=== PATIENT | male | born 1965 | race Caucasian/White ===

== ENCOUNTER 2019-06-07 19:01 | Inpatient (IN) | payer OTHER, MEDICAID ==
[~2019-06-07] VITALS: Ht 180.3 cm; Wt 126.2 kg
--- NOTE | 2019-06-07 19:01 | NUR ---
Pt BIB BLS from [facility] in stable condition. EMS with pt in ER hallway until bed becomes available.
[2019-06-07 19:20] VITALS: BP_SYST 129
--- NOTE | 2019-06-07 19:20 | NUR ---
Pt placed to ER bed 03, to gown, to sheet metal worker apprentice. Pt report given to ASHIA Grant.
--- NOTE | 2019-06-07 19:40 | NUR ---
Pt BIB EMS from [facility] with c/o SOB, left sided swelling of hand and foot, and congestion. Pt states SOB has gradually increased the last few days when he "walks from bedroom to dining guzman." Upon assessment pt has +2 edema to left leg and left wrist. Pt has +1 edema to right leg. Upon assessment, pt has clear bilateral lungs. Pt oxygen saturation at 98% with no use of accessory muscles. Will continue monitor.
--- NOTE | 2019-06-07 20:30 | NUR ---
Dr. Hall at bedside.
--- NOTE | 2019-06-07 20:51 | NUR ---
Radiology at bedside.
[2019-06-07 21:23] LABS: BASOPHILS # (AUTO) 0.1 K/uL (0.0-0.2); BASOPHILS % (AUTO) 1.3 % (0.0-2.0); EOSINOPHILS # (AUTO) 0.2 K/uL (0.0-0.4); HEMOGLOBIN 8.2 g/dL (14.0-18.0); LYMPHOCYTES # (AUTO) 2.4 K/uL (1.0-5.5); LYMPHOCYTES % (AUTO) 26.2 % (20.5-51.5); MEAN CORPUSCULAR HEMOGLOBIN 19 pg (27-31); MEAN CORPUSCULAR HGB CONC 29 % (32-36); MEAN CORPUSCULAR VOLUME 65 fL (79.0-98.0); MONOCYTES # (AUTO) 0.8 K/uL (0.0-1.0); MONOCYTES % (AUTO) 9.1 % (1.7-9.3); NEUTROPHILS # (AUTO) 5.6 K/uL (1.8-7.7); NEUTROPHILS % (AUTO) 61.4 % (40.0-70.0); PLATELET COUNT (AUTO) 333 K/uL (130-430); RED BLOOD CELL COUNT(AUTO) 4.33 MIL/uL (4.2-6.2); RED CELL DISTRIBUTION WIDTH 19.4 % (9.0-15.0); WHITE BLOOD COUNT (AUTO) 9.1 K/uL (4.8-10.8)
[2019-06-07 21:40] LABS: PROTHROMBIN TIME 9.9 SECS (9.5-12.5)
[2019-06-07 21:42] LABS: CALCIUM 7.8 mg/dL (8.4-11.0); CREATININE 0.87 mg/dL (0.55-1.30); POTASSIUM 3.9 mmol/L (3.5-5.1)
[2019-06-07 21:49] LABS: ALBUMIN 3.2 g/dL (3.4-4.8); TOTAL BILIRUBIN 0.2 mg/dL (0.0-1.0)
--- NOTE | 2019-06-07 21:55 | NUR ---
Pt requests water. Per , pt allowed water. Pt given ice water. Will continue to monitor.
--- NOTE | 2019-06-07 23:13 | NUR ---
Patient will be admitted to care of [facility]. Admitted to telemetry unit. Awaiting room placement. Belongings list completed. Complete and up to date summary report printed. SBAR report to be given at bedside with opportunity for questions.
[2019-06-07] MEDS ORDERED: POTA20TA83 PO (23:39)
[2019-06-07] MEDS ORDERED: INSU100V SQ (23:39)
[2019-06-07] MEDS ORDERED: HYDR-4039 PO (23:39)
[2019-06-07] MEDS ORDERED: CAT.1 PO (23:39)
[2019-06-07] MEDS ORDERED: TOP25 PO (23:39)
[2019-06-07] MEDS ORDERED: COLL100 PO (23:39)
[2019-06-07] MEDS ORDERED: ACET-2165 PO (23:39)
[2019-06-07] MEDS ORDERED: GABA-529 PO (23:39)
[2019-06-07] MEDS ORDERED: METO25TA6 PO (23:39)
[2019-06-07] MEDS ORDERED: INSU100V9 SQ (23:39)
[2019-06-07] MEDS ORDERED: LORA-259 PO (23:39)
[2019-06-07] MEDS ORDERED: FLEETMO RC (23:39)
[2019-06-07] MEDS ORDERED: LISI2.5T48 PO (23:39)
[2019-06-07] MEDS ORDERED: BISA-79 PR (23:39)
[2019-06-07] MEDS ORDERED: GLUC1KIT IJ (23:39)
[2019-06-07] MEDS ORDERED: MOM PO (23:39)
[2019-06-07] MEDS ORDERED: ONDA4TAB5 PO (23:39)
[2019-06-07] MEDS ORDERED: PANT40TA4 PO (23:39)
[2019-06-07] MEDS ORDERED: NITSL SL (23:39)
--- NOTE | 2019-06-07 23:39 | NUR ---
Medication reconciliation completed with information provided by [facility]. Any prior medication reconciliation on file was reviewed and corrected.
--- NOTE | 2019-06-08 00:08 | NUR ---
[facility] powerhouse attendant called and would like to be updated on pt. fabric coating supervisor's name is Morteza and phone number is .
--- NOTE | 2019-06-08 00:56 | NUR ---
Transfer to Telemetry room 123B via ACLS protocol. Licensed nurse present. IV present no signs or symptoms of infiltration.
--- NOTE | 2019-06-08 02:00 | NUR ---
Due to Code blue, charge nurse and Peek off unit. refrigerating technician on break. 3 nurses must be in ER when MD off unit. Will continue to monitor pt and transfer when available staff.
--- NOTE | 2019-06-08 02:30 | NUR ---
Pt transfered to Telemetry via [facility] in stable condition.
--- NOTE | 2019-06-08 02:45 | NUR ---
REPORT RECEIVED BY ASHIA CASTAÑEDA. REPORT RECEIVED, BY ASHIA CASTAÑEDA. BY BEDSIDE.
[2019-06-08 02:58] VITALS: BP_SYST 155
--- NOTE | 2019-06-08 03:00 | NUR ---
ADMISSION: The patient, EDUARD SPAIN, 54 y/o, M admitted by DEVONTE BAKER MD, was given written information regarding hospital policies, unit procedures and contact persons. Valuables were checked and signed.
--- NOTE | 2019-06-08 03:10 | NUR ---
INITIAL NOTE PATIENT IS STABLE AND LAYING IN BED. NO S/S OF RESPIRATORY DISTRESS NOTED. PLAN OF CARE IS DISCUSSED WITH PATIENT AT THIS TIME. FALL, SAFETY, ASPIRATION, AND RESPIRATORY PRECAUTIONS WILL BE IN PLACE THROUGHOUT THE SHIFT. BED IS LOCKED, ALARMED, AND AT THE LOWEST POSITION. WILL CONTINUE TO MONITOR.
--- NOTE | 2019-06-08 03:35 | NUR ---
Consultation Paged Reason for Consultation: CHF Was consult called: Y Person who was notified: Sadia Consulting Physician: Sanchez Marcos Recreation Therapy Teacher Ordering Physician: Dr. Hewitt
[2019-06-08] MEDS: INSULIN REGULAR, HUMAN 100 UNITS/ML, 10 ML VIAL (humuLIN R) SUBCUT PRN ×4 (05:20→23:12)
--- NOTE | 2019-06-08 05:20 | NUR ---
PATIENT REFUSED INSULIN PATIENT REFUSED INSULIN DESPITE EDUCATIONAL EFFORTS. GLUCOSE IS 187. WILL CONTINUE TO EDUCATE.
[2019-06-08] MEDS ORDERED: NORMAL SALINE 5 ML DISP.SYRIN IVF SCH (06:00)
--- NOTE | 2019-06-08 06:34 | NUR ---
PAGE DR. BAKER FOR ORDERS.
[2019-06-08 06:40] LABS: BASOPHILS % (AUTO) 0.5 % (0.0-2.0); EOSINOPHILS # (AUTO) 0.2 K/uL (0.0-0.4); EOSINOPHILS % (AUTO) 2.1 % (0.0-4.0); HEMATOCRIT 27.4 % (36-54); HEMOGLOBIN 8.1 g/dL (14.0-18.0); LYMPHOCYTES # (AUTO) 2.3 K/uL (1.0-5.5); LYMPHOCYTES % (AUTO) 24.7 % (20.5-51.5); MEAN CORPUSCULAR HEMOGLOBIN 19 pg (27-31); MEAN CORPUSCULAR HGB CONC 29 % (32-36); MEAN CORPUSCULAR VOLUME 65 fL (79.0-98.0); MONOCYTES # (AUTO) 0.9 K/uL (0.0-1.0); MONOCYTES % (AUTO) 9.2 % (1.7-9.3); NEUTROPHILS # (AUTO) 5.9 K/uL (1.8-7.7); NEUTROPHILS % (AUTO) 63.5 % (40.0-70.0); PLATELET COUNT (AUTO) 297 K/uL (130-430); RED BLOOD CELL COUNT(AUTO) 4.22 MIL/uL (4.2-6.2); RED CELL DISTRIBUTION WIDTH 18.6 % (9.0-15.0); WHITE BLOOD COUNT (AUTO) 9.3 K/uL (4.8-10.8)
[2019-06-08 06:44] LABS: CALCIUM 7.6 mg/dL (8.4-11.0); CREATININE 0.79 mg/dL (0.55-1.30); POTASSIUM 3.6 mmol/L (3.5-5.1)
--- NOTE | 2019-06-08 06:49 | NUR ---
COMMUNICATED WITH DR. BAKER COMMUNICATED WITH DR. BAKER. ORDERS RECEIVED. WILL CONTINUE WITH ORDERS.
--- NOTE | 2019-06-08 06:59 | NUR ---
CLOSING NOTES PATIENT IS RESTING IN BED AND STABLE. NO S/S OF RESPIRATORY DISTRESS NOTED. CALL LIGHT IN REACH. BED IS LOCKED, ALARMED, AND AT THE LOWEST POSITION. FALL, SAFETY, ASPIRATION, CONTACT, AND RESPIRATORY PRECAUTIONS HAS BEEN PLACE THROUGHOUT THE SHIFT. WILL CONTINUE TO MONITOR UNTIL REPORT IS GIVEN TO AM NURSE.
--- NOTE | 2019-06-08 08:40 | NUR ---
AM rounds: Patient is awake, oriented x4. Ambulates to the bathroom with minimal assist. No shortness of breath, no chest pain. Call light within reach, safety precautions in place.
[2019-06-08] MEDS: OXYCODONE/ACETAMINOPHEN *10*mg/325 mg TABLET PO PRN ×3 (08:56→21:26)
[2019-06-08 08:58] VITALS: BP_SYST 161
--- NOTE | 2019-06-08 10:47 | NUR ---
Nutrition Update Jose J Scale 18 noted. Pt admitted for CHF. Diet: CCHO, 2 gm Na BMI: 39.5 kg/m2 RD to follow per nutrition care standards.
[2019-06-08] MEDS ORDERED: LOSARTAN/HYDROCHLOROTHIAZIDE TAB (HYZAAR 50-12.5 MG) PO ONE (11:00)
--- NOTE | 2019-06-08 11:30 | NUR ---
Rounds: Patient is in bed. No shortness of breath,
--- NOTE | 2019-06-08 11:38 | NUR ---
Cardio Rounds; Seen by Dr. Wilmar Tracy, orders noted. Made aware of high Bp this morning.
[2019-06-08 12:05] VITALS: BP_SYST 171
[2019-06-08 12:07] VITALS: BP_SYST 151
[2019-06-08] MEDS ORDERED: D5W 1,000 ML IV PRN (12:23)
[2019-06-08] MEDS ORDERED: DEXTROSE 50% JECT 50 ML DISP.SYRIN IVP PRN (12:30)
[2019-06-08] MEDS ORDERED: GLUCOSE 15 GM GEL (in 37.5 GM TUBE) PO PRN (12:30)
--- NOTE | 2019-06-08 12:42 | NUR ---
CONSULTATION PAGED/CALLED Reason for Consultation: COPD/SOB Person Who was Notified: DR. REDDY Consulting Physician: DR. REDDY Rn Clinical Appeals Specialty: PULOMONOLOGIST Ordering Physician: DR. BAKER
[2019-06-08] MEDS ORDERED: DOCUSATE SODIUM 100 MG/10 ML UDC PO PRN (12:45)
[2019-06-08] MEDS ORDERED: ACETAMINOPHEN 325 MG TABLET PO PRN (12:45)
[2019-06-08] MEDS ORDERED: MILK OF MAGNESIA 30 ML UDC PO PRN (12:45)
[2019-06-08] MEDS ORDERED: BISACODYL 5 MG TABLET.DR (DULCOLAX) PO PRN (12:45)
[2019-06-08] MEDS ORDERED: MINERAL OIL 133 ML ENEMA RC PRN (12:45)
[2019-06-08] MEDS ORDERED: NITROGLYCERIN 0.4 MG TAB.SUBL SL PRN (12:45)
--- NOTE | 2019-06-08 13:00 | NUR ---
MD Rounds: Seen by Dr. Hewitt. Home meds were reconcilled. Patient is aware of new orders.
[2019-06-08] MEDS ORDERED: HYDROCHLOROTHIAZIDE 12.5 MG CAPSULE (HCTZ) PO ONE (13:30)
[2019-06-08] MEDS ORDERED: LOSARTAN POTASSIUM 50 MG TABLET (COZAAR) PO ONE (13:30)
--- NOTE | 2019-06-08 13:38 | NUR ---
CONSULTATION PAGED/CALLED Reason for Consultation: SOB Person Who was Notified: SPOKE WITH CEDRIC FROM Nghia MCMANUS Consulting Physician: Nghia MCMANUS Diesel Pile Hammer Operator Specialty: ID Ordering Physician: FACE SHEET WAS FAXED [phone]
[2019-06-08] MEDS ORDERED: FUROSEMIDE 20 MG TABLET PO ONE (14:00)
[2019-06-08] MEDS: cloNIDine HCL 0.1 MG TABLET PO SCH ×2 (14:48→21:16)
[2019-06-08] MEDS: hydrALAZINE HCL 25 MG TABLET PO SCH ×2 (14:48→21:17)
[2019-06-08] MEDS ORDERED: ENOXAPARIN SODIUM 40 MG/0.4 ML SYRINGE SUBCUT ONE (15:30)
[2019-06-08 16:04] VITALS: BP_SYST 162
--- NOTE | 2019-06-08 18:22 | NUR ---
End of shift: Needs attended. No change in assessment.
--- NOTE | 2019-06-08 19:40 | NUR ---
INITIAL NOTES PATIENT IS LAYING IN BED AND STABLE. NO S/S OF RESPIRATORY DISTRESS NOTED. PATIENT WAS ABLE TO SUCCESSFULLY DEMONSTRATE USAGE OF CALL LIGHT AT THIS TIME. PLAN OF CARE WAS DISCUSSED WITH PATIENT. BED IS LOCKED, ALARMED, AND AT THE LOWEST POSITION. FALL, SAFETY, ASPIRATION, CONTACT, AND RESPIRATORY PRECAUTIONS WILL BE IN PLACE THROUGHOUT THE SHIFT. WILL CONTINUE TO MONITOR.
[2019-06-08 19:49] VITALS: BP_SYST 144
[2019-06-08] MEDS: TEMAZEPAM 15 MG CAPSULE PO SCH (21:12)
[2019-06-08] MEDS: GABAPENTIN 300 MG CAPSULE PO SCH (21:13)
[2019-06-08] MEDS: TOPIRAMATE 25 MG TABLET(TOPAMAX) PO SCH (21:13)
--- NOTE | 2019-06-08 21:40 | NUR ---
ROUNDING PATIENT IS LAYING IN BED AND WATCHING TV. PATIENT IS STABLE. NO S/S OF RESPIRATORY DISTRESS NOTED. CALL LIGHT IN REACH. BED IS LOCKED, ALARMED, AND AT THE LOWEST POSITION. WILL CONTINUE TO MONITOR.
--- NOTE | 2019-06-08 22:52 | NUR ---
PATIENT REQUESTED TO SIT AT THE EDGE OF THE BED DESPITE EDUCATIONAL EFFORTS, PATIENT REQUESTED TO SIT AT THE EDGE OF THE BED. WILL MONITOR FREQUENTLY. BED IS LOCKED, ALARMED, AND AT THE LOWEST POSITION. PATIENT IS OTHERWISE STABLE. NO S/S OF RESPIRATORY DISTRESS NOTED. CALL LIGHT IN REACH. WILL CONTINUE TO MONITOR.
[2019-06-09] VITALS (7 sets, daily range): BP systolic 109–142
--- NOTE | 2019-06-09 00:21 | NUR ---
ROUNDING PATIENT IS LAYING IN BED AND STABLE. PATIENT IS WATCHING TV. NO S/S OF RESPIRATORY DISTRESS NOTED. CALL LIGHT IN REACH. BED IS LOCKED, ALARMED, AND AT THE LOWEST POSITION. WILL CONTINUE TO MONITOR.
--- NOTE | 2019-06-09 01:29 | NUR ---
PATIENT WALKED TO THE RESTROOM PATIENT WALKED TO THE RESTROOM AT THIS TIME. PATIENT TOLERATED WELL. PATIENT HAD A BOWEL MOVEMENT. PATIENT IS BACK IN BED. NO S/S OF RESPIRATORY DISTRESS. CALL LIGHT IN REACH. BED IS LOCKED, ALARMED, AND AT THE LOWEST POSITION.
--- NOTE | 2019-06-09 03:29 | NUR ---
ROUNDING PATIENT IS SLEEPING IN BED AND STABLE. NO S/S OF RESPIRATORY DISTRESS NOTED. CALL LIGHT IN REACH. BED IS LOCKED, ALARMED, AND AT THE LOWEST POSITION. WILL CONTINUE TO MONITOR.
[2019-06-09] MEDS: cloNIDine HCL 0.1 MG TABLET PO SCH ×3 (05:31→21:05)
[2019-06-09] MEDS: INSULIN REGULAR, HUMAN 100 UNITS/ML, 10 ML VIAL (humuLIN R) SUBCUT PRN ×4 (05:37→23:55)
[2019-06-09 06:14] LABS: CALCIUM 8.1 mg/dL (8.4-11.0); CREATININE 0.7 mg/dL (0.55-1.30); POTASSIUM 3.6 mmol/L (3.5-5.1)
--- NOTE | 2019-06-09 06:37 | NUR ---
CLOSING NOTES PATIENT IS LAYING IN BED AND STABLE. NO S/S OF RESPIRATORY DISTRESS NOTED. CALL LIGHT IN REACH. BED IS LOCKED, ALARMED, AND AT THE LOWEST POSITION. FALL, SAFETY, ASPIRATION, CONTACT, AND RESPIRATORY PRECAUTIONS HAS BEEN PLACE THROUGHOUT THE SHIFT. WILL CONTINUE TO MONITOR UNTIL REPORT IS GIVEN TO AM NURSE BY BEDSIDE.
--- NOTE | 2019-06-09 08:00 | NUR ---
Note Pt sitting up in bed eating his breakfast. No SOB/resp distress or chest pain/discomfort was noted at this time. Tele unit attached and intact at this time. IV in right forearm intact and patent. No needs noted. Call light within reach.
[2019-06-09] MEDS: GABAPENTIN 300 MG CAPSULE PO SCH ×2 (08:29→21:04)
[2019-06-09] MEDS: POTASSIUM CHLORIDE 20 MEQ TAB.PRT.SR PO SCH (08:29)
[2019-06-09] MEDS: LORazepam 1 MG TABLET PO SCH (08:29)
[2019-06-09] MEDS: ONDANSETRON 4 MG ODT TAB PO SCH (08:29)
[2019-06-09] MEDS: METOPROLOL TARTRATE 25 MG TABLET PO SCH (08:30)
[2019-06-09] MEDS: hydrALAZINE HCL 25 MG TABLET PO SCH ×3 (08:31→21:04)
[2019-06-09] MEDS: PANTOPRAZOLE SODIUM 40 MG TAB PO SCH (08:31)
[2019-06-09] MEDS: LISINOPRIL 5 MG TABLET PO SCH (08:31)
[2019-06-09] MEDS: ENOXAPARIN SODIUM 40 MG/0.4 ML SYRINGE SUBCUT SCH (08:36)
--- NOTE | 2019-06-09 11:50 | NUR ---
Note Pt asleep in bed. Denies any needs at this time. Denies any pain/discomfort at this time. Call light within reach.
[2019-06-09] MEDS ORDERED: ALBUTEROL SULFATE 0.083% 2.5 MG/3 ML VIAL.NEB INH PRN (12:15)
[2019-06-09] MEDS ORDERED: IPRATROPIUM BROM 0.5 MG/2.5 ML VIAL.NEB (ATROVENT) INH PRN (12:15)
--- NOTE | 2019-06-09 12:30 | NUR ---
Discharge Plan Assessment Complete MEDICAL AUTHORIZATION SPECIALIST met with patient at bedside. Patient is alert and oriented. He has a DNR order. He has lived at [facility] for "a long time" and plans to return. He does not want his sister called and makes his own decisions. Phoned [facility], , and left a message for a return call. No barriers apparent for return to SNF. Production Editor/Case Management/Fagoting Machine Operator will remain available.
[2019-06-09] MEDS ORDERED: FUROSEMIDE 40 MG/4 ML VIAL IVP ONE (13:00)
[2019-06-09] MEDS: ALBUTEROL SULFATE 0.083% 2.5 MG/3 ML VIAL.NEB INH SCH ×2 (13:49→19:33)
[2019-06-09] MEDS: IPRATROPIUM BROM 0.5 MG/2.5 ML VIAL.NEB (ATROVENT) INH SCH ×2 (13:49→19:33)
--- NOTE | 2019-06-09 14:35 | NUR ---
Note Pt had his breathing treatments and now gone back to sleep. No SOB/resp distress or chest pain/discomfort noted at this time. No needs noted. Call light within reach.
--- NOTE | 2019-06-09 18:15 | NUR ---
Note Pt ambulated OOB to restroom with FWW to restroom for bowel movement. Pt was checked on q1' and PRN all shift for needs and care. No SOB/resp distress or chest pain/discomfort noted at this time. Tele unit attached and intact. IV in right hand intact and patent. No needs noted at this time. Call light within reach. Pt sitting on side of bed eating his dinner.
--- NOTE | 2019-06-09 19:15 | NUR ---
change of shift.pt.presents general status stable.pt.ambulates utilizing the assist device;walker.respiratory status stable; unlabored @room air. pt.presents iv acces intact;patent.call light/telephone w/in reach of the pt.
[2019-06-09] MEDS: OXYCODONE/ACETAMINOPHEN *10*mg/325 mg TABLET PO PRN (19:59)
--- NOTE | 2019-06-09 20:00 | NUR ---
pt.assessed.v/s assessed;values w/in normal limits.i have apprised the pt.that i may provide snacks/beverages w/in the shift. pt.has requested snacks.i have provided various snack items.general status stable.respiratory status stable@room air; 02-sat%=98%@room air.iv access intact;patent.pt.capable to reposition self/ambulate utilizing the walker.call light/ telephone w/in reach of the pt.i have inspected the urinal;clean w/in reach of the pt. Addendum: 06/10/19 at 0130 by Rao Hansen RN pt.had requested medication;pain.i have administered percocet;10/325mg po.to re-assess the medication efficacy per pain mgx protocol.
--- NOTE | 2019-06-09 21:00 | NUR ---
2100pmedications administered.pt.capable to ingest medication whole w/out difficulty.no requests posited@this hour.
[2019-06-09] MEDS: TOPIRAMATE 25 MG TABLET(TOPAMAX) PO SCH (21:04)
[2019-06-09] MEDS: TEMAZEPAM 15 MG CAPSULE PO SCH (21:04)
--- NOTE | 2019-06-09 22:00 | NUR ---
pt.assessed.pt.presents quiescent affect;calm,resting.no c/o pain,nausea.i have attended to the urinal;measured/placed w/in reach of the pt. no c/o pain,nausea.no requests posited@this hour.general status stable.respiratory status stable;unlabored.pt.capable to reposition self. call light/telephone placed w/in reach of the pt.
[2019-06-10] VITALS (7 sets, daily range): BP systolic 108–132
--- NOTE | 2019-06-10 | NUR ---
pt.assessed.v/s assessed;values w/in normal limits.no c/o pain,nausea.i have assessed the blood glucose;value;326mg/dl. i have administered insulin;regular:8-units.pt had request snacks/i cheo provided the snacks items.i have inspected the urinal;clean w/in reach of the pt. general status stable.respiratory status stable.pt.capable to reposition self.call light/telephone w/in reach of the pt.
[2019-06-10] MEDS: ALBUTEROL SULFATE 0.083% 2.5 MG/3 ML VIAL.NEB INH SCH ×4 (01:00→19:00)
[2019-06-10] MEDS: IPRATROPIUM BROM 0.5 MG/2.5 ML VIAL.NEB (ATROVENT) INH SCH ×4 (01:00→19:00)
--- NOTE | 2019-06-10 02:00 | NUR ---
pt.assessed.pt.presents quiescent affect;calm,resting,viewing tv programming.i have inspected the urinal;clean.pt. alternates to the restroom utilizing the urinal.w/in reach of the pt.pt.capable to reposition self.oob/brp utilizing the walker.general statu stable.respiratory status stable.;unlabored.call light/telephone w/in reach of the pt.no requests posited @this hour.
--- NOTE | 2019-06-10 02:30 | NUR ---
pt.had requested medication;pain.i have administered percocet;10/325mg po 1 tab.no additional requests posited @this hour.
[2019-06-10] MEDS: OXYCODONE/ACETAMINOPHEN *10*mg/325 mg TABLET PO PRN ×2 (02:38→21:08)
--- NOTE | 2019-06-10 04:00 | NUR ---
pt.assessed.pt.presents quiescent affect;calm,somnolent.i have inspected the urinal;clean.w/in reach of the pt. general status stable.respiratory status stable;unlabored.pt.,capable to reposition self.call light/telephone w/in reach of the pt.
[2019-06-10] MEDS: cloNIDine HCL 0.1 MG TABLET PO SCH ×3 (05:18→21:34)
[2019-06-10] MEDS: INSULIN REGULAR, HUMAN 100 UNITS/ML, 10 ML VIAL (humuLIN R) SUBCUT PRN ×3 (05:28→17:11)
--- NOTE | 2019-06-10 06:11 | NUR ---
pt assessed.pt.presents quiescent affect;calm,resting.i have assessed th blood glucose:value;272mg/dl.i have administered: insulin:regular:6-units.no c/o pain,nausea.urinal w/in reach of the pt.call light//telephone w/in reach of the pt.
--- NOTE | 2019-06-10 08:00 | NUR ---
Note Pt sitting on side of bed eating his breakfast. Tele unit attached and intact at this time. IV in right AC intact and patent. No SOB/resp distress or chest pain/discomfort noted at this time. Call light within reach.
[2019-06-10] MEDS: FUROSEMIDE 40 MG/4 ML VIAL IVP SCH (08:43)
[2019-06-10] MEDS: PANTOPRAZOLE SODIUM 40 MG TAB PO SCH (08:44)
[2019-06-10] MEDS: GABAPENTIN 300 MG CAPSULE PO SCH ×2 (08:44→21:34)
[2019-06-10] MEDS: METOPROLOL TARTRATE 25 MG TABLET PO SCH (08:45)
[2019-06-10] MEDS: hydrALAZINE HCL 25 MG TABLET PO SCH ×3 (08:46→21:33)
[2019-06-10] MEDS: ONDANSETRON 4 MG ODT TAB PO SCH (08:46)
[2019-06-10] MEDS: POTASSIUM CHLORIDE 20 MEQ TAB.PRT.SR PO SCH (08:47)
[2019-06-10] MEDS: LISINOPRIL 5 MG TABLET PO SCH (08:48)
[2019-06-10] MEDS: LORazepam 1 MG TABLET PO SCH (08:49)
[2019-06-10] MEDS: ENOXAPARIN SODIUM 40 MG/0.4 ML SYRINGE SUBCUT SCH (08:53)
--- NOTE | 2019-06-10 11:00 | NUR ---
Note Pt used FWW and ambulated to restroom with steady gait. No needs noted at this time. Call light within reach. Dr Tracy (ID) on the floor and assessment was done. Call light within reach.
--- NOTE | 2019-06-10 13:00 | NUR ---
Note Pt sitting on side of bed eating his lunch. No SOB/resp distress or pain/discomfort was noted at this time. Call light within reach.
[2019-06-10 13:46] LABS: CALCIUM 8.2 mg/dL (8.4-11.0); CREATININE 0.96 mg/dL (0.55-1.30); POTASSIUM 4.2 mmol/L (3.5-5.1)
--- NOTE | 2019-06-10 16:05 | NUR ---
Note Pt sitting up in bed watching television - denies any needs at this time. Denies any SOB/resp distress or chest pain/discomfort at this time. Call light within reach.
--- NOTE | 2019-06-10 18:15 | NUR ---
Note Pt sitting on side of bed eating his dinner. No SOB/resp distress or chest pain/discomfort was noted all shift. Pt was checked on q1' and PRN all shift for needs and care. IV in right AC intact and patent at this time. Pt uses FWW to ambulate to restroom with standby assist - as pt has left sided weakness on left leg and arm. No needs noted at this time. Call light within reach. Tele unit attached and intact at this time.
--- NOTE | 2019-06-10 20:00 | NUR ---
REPORT RECIEVED @ START OF SHIFT, PATIENT A/O/X/3 WITH FORGETFULNESS, RESPIRATIONS EVEN AND UNLABORED, ROOM AIR,ABLE TO AMBULATE FROM BED TO RESTROOM USING WALKER,VOIDING CLEAR YELLOW URINE, S/L PATENT/INTACT TO RAC # 20G, NOTED LEFT SIDED WEAKNESS, SPEECH IS CLEAR AND SLOW, C/O ABDOMINAL PAIN, MEDICATED WITH PERCOCET PO TAB.1, WILL CONTINUE TO MONITOR FOR ANY S/S OF DISTRESS. SR'S UP X'S 2, CALL LIGHT WITHIN REACH, BED IN LOW POSITION.
[2019-06-10] MEDS: TEMAZEPAM 15 MG CAPSULE PO SCH (21:32)
[2019-06-10] MEDS: TOPIRAMATE 25 MG TABLET(TOPAMAX) PO SCH (21:37)
--- NOTE | 2019-06-11 | NUR ---
BLOOD GLUCOSE RESULTS = 280, GIVEN REGULAR INSULIN 6 UNITS SUBQ PER SLIDING SCALE COVERAGE, DENIES PAIN, CONTINUES TO REST QUIETLY IN BED WITH EYES CLOSED, EASILY AROUSED, NO NOTED CHANGES IN PRESENT CONDITION.
[2019-06-11] MEDS: IPRATROPIUM BROM 0.5 MG/2.5 ML VIAL.NEB (ATROVENT) INH SCH ×3 (01:00→13:12)
[2019-06-11] MEDS: ALBUTEROL SULFATE 0.083% 2.5 MG/3 ML VIAL.NEB INH SCH ×3 (01:00→13:12)
[2019-06-11] MEDS: INSULIN REGULAR, HUMAN 100 UNITS/ML, 10 ML VIAL (humuLIN R) SUBCUT PRN ×3 (01:23→10:53)
[2019-06-11] MEDS: OXYCODONE/ACETAMINOPHEN *10*mg/325 mg TABLET PO PRN ×2 (03:56→13:47)
[2019-06-11 03:57] VITALS: BP_SYST 124
--- NOTE | 2019-06-11 04:00 | NUR ---
MEDICATED WITH PERCOCET TAB 1 PO FOR C/O ABDOMINAL PAIN, TOLERATING PO FLUIDS WELL, CONTINUES TO VOID IN URINAL WITHOUT DIFFICULTY, ALL NEEDS ANTICIPATED AND MET, WILL CONTINUE TYO MONITOR FOR ANY S/S OF DISTRESS.
[2019-06-11] MEDS: cloNIDine HCL 0.1 MG TABLET PO SCH ×2 (05:55→13:47)
--- NOTE | 2019-06-11 07:00 | NUR ---
OPENING NOTES PT AWAKE, ALERT, AND ORIENTED. RECEIVING BREATHING TREATMENT FROM RT. TOLERATING WELL. NO ACUTE DISTRESS NOTED. IV LINE INTACT AND PATENT, NO SIGNS OF INFILTRATION. LEFT SIDED EXTREMITIES WEAKNESS NOTED. BED ALARM ON. BED IN LOWEST AND LOCKED POSITION. ALL NEEDS MET. CALL LIGHT IN REACH. FALL AND ASPIRATION PRECAUTIONS IN PLACE. CONTINUE TO MONITOR.
[2019-06-11 08:00] VITALS: BP_SYST 121
[2019-06-11] MEDS: LORazepam 1 MG TABLET PO SCH (08:25)
[2019-06-11] MEDS: hydrALAZINE HCL 25 MG TABLET PO SCH ×2 (08:26→15:00)
[2019-06-11] MEDS: POTASSIUM CHLORIDE 20 MEQ TAB.PRT.SR PO SCH (08:27)
[2019-06-11] MEDS: PANTOPRAZOLE SODIUM 40 MG TAB PO SCH (08:27)
[2019-06-11] MEDS: GABAPENTIN 300 MG CAPSULE PO SCH (08:27)
[2019-06-11] MEDS: ONDANSETRON 4 MG ODT TAB PO SCH (08:27)
[2019-06-11] MEDS: LISINOPRIL 5 MG TABLET PO SCH (08:28)
--- NOTE | 2019-06-11 08:28 | NUR ---
ROUTINE MEDS ROUTINE MEDS ADMINISTERED ORDERED PER MD, EDUCATION GIVEN, TOLERATED WELL. NO ACUTE DISTRESS NOTED. ALL NEEDS MET. CALL LIGHT IN REACH. FALL AND ASPIRATION PRECAUTIONS IN PLACE. CONTINUE TO MONITOR.
[2019-06-11] MEDS: METOPROLOL TARTRATE 25 MG TABLET PO SCH (08:29)
[2019-06-11] MEDS: FUROSEMIDE 40 MG/4 ML VIAL IVP SCH (08:29)
[2019-06-11] MEDS: ENOXAPARIN SODIUM 40 MG/0.4 ML SYRINGE SUBCUT SCH (08:30)
--- NOTE | 2019-06-11 10:52 | NUR ---
ACCUCHECK ACCUCHECK DONE. RESULT 277 MG/DL. EDUCATION GIVEN, TOLERATED WELL. INSULIN COVERAGE ADMINISTERED ORDERED PER MD, EDUCATION GIVEN, TOLERATED WELL. NO ACUTE DISTRESS NOTED. ALL NEEDS MET. CALL LIGHT IN REACH. CONTINUE TO MONITOR.
--- NOTE | 2019-06-11 11:42 | NUR ---
Discharge Planning: Pt has order to DC back to SNF; [facility] has faxed referral to [facility] ( [phone]); [facility] will follow up on bed availability. Addendum: 06/11/19 at 1351 by Lizzy Palacio LCSW Pt has been accepted back to [facility]; [facility] spoke with Zeinab; pt will be returning to [facility]. Transportation has been set up with [facility] ([phone]); cotton picking machine operator set for 4:00pm.
[2019-06-11 12:12] VITALS: BP_SYST 115
[2019-06-11 12:19] VITALS: BP_SYST 107
--- NOTE | 2019-06-11 13:00 | NUR ---
ROUNDS PT AWAKE, ALERT, AND ORIENTED. NO ACUTE DISTRESS NOTED. NONLABORED BREATHING NOTED. ALL NEEDS MET. CALL LIGHT IN REACH. FALL AND ASPIRATION PRECAUTIONS IN PLACE. CONTINUE TO MONITOR.
--- NOTE | 2019-06-11 14:01 | NUR ---
CALLED THA RENDON, SISTER , DID NOT ANSWER. COULD NOT LEAVE A VOICEMAIL DUE TO MESSAGE SYSTEM SAYING, "THIS PERSON YOU ARE CALLING CANNOT ACCEPT CALLS AT THIS TIME. WE'RE SORRY FOR ANY INCONVENIENCE THAT THIS MAY CAUSE."
--- NOTE | 2019-06-11 14:06 | NUR ---
DC PLANNING Per [facility] pt accepted back to [facility] room 19C. Spoke w pt @ bedside & informed. Is agreeable w transfer back to [facility] today, states 19 C is his room.
--- NOTE | 2019-06-11 15:00 | NUR ---
ROUTINE MEDS ROUTINE MEDS ADMINISTERED ORDERED PER MD. EDUCATION GIVEN, TOLERATED WELL. NO ACUTE DISTRESS NOTED. ALL NEEDS MET. CALL LIGHT IN REACH. CONTINUE TO MONITOR.
[2019-06-11 16:10] VITALS: BP_SYST 118
--- NOTE | 2019-06-11 16:46 | NUR ---
D/C Patient Patient given medication reconciliation form and D/C instructions. Exit Care provided. Patient verbalized understanding. MD discussed with patient the results and treatment provided. Ambulatory with assist. Patient in stable condition, ID band removed. IV catheter removed, intact and dressing applied, no active bleeding. Patient educated on pain management. All belongings sent with patient.
== END 2019-06-11 16:40 | DRG 191 ==
LOC: SED 19:01 → STU 23:43
PROVIDERS: ADMIT Internal Medicine; ATTEND Internal Medicine
DX: J44.1 Chronic obstructive pulmonary disease with (acute) exacerbation (principal); I69.354 Hemiplegia and hemiparesis following cerebral infarction affecting left non-dominant side; E11.40 Type 2 diabetes mellitus with diabetic neuropathy, unspecified; I11.0 Hypertensive heart disease with heart failure; I50.810 Right heart failure, unspecified; E66.01 Morbid (severe) obesity due to excess calories; K46.9 Unspecified abdominal hernia without obstruction or gangrene; I48.91 Unspecified atrial fibrillation; F32.9 Major depressive disorder, single episode, unspecified; G47.00 Insomnia, unspecified; G47.33 Obstructive sleep apnea (adult) (pediatric); F41.9 Anxiety disorder, unspecified; D64.9 Anemia, unspecified; K21.9 Gastro-esophageal reflux disease without esophagitis; I25.119 Atherosclerotic heart disease of native coronary artery with unspecified angina pectoris; Z79.4 Long term (current) use of insulin; Z86.14 Personal history of Methicillin resistant Staphylococcus aureus infection; Z68.38 Body mass index [BMI] 38.0-38.9, adult; Z79.899 Other long term (current) drug therapy; Z90.49 Acquired absence of other specified parts of digestive tract
CPT/HCPCS: 36415; 71045; 80048; 80053; 80061; 82962; 83880; 84484; 85025; 85379; 85610-TC; 85730-TC; 87081; 93005; 93306; 93970; 94640; 94760; 99285; G0378; J1650; J1940; J7613; Q0162

== ENCOUNTER 2019-07-17 12:01 | Emergency (ER) | payer OTHER, MEDICAID ==
[~2019-07-17] VITALS: Ht 182.9 cm; Wt 124.7 kg
[~2019-07-17 12:01] MED LIST: ACET-2165 PO; BISA-79 PR; CAT.1 PO; COLL100 PO; FLEETMO RC; GABA-529 PO; GLUC1KIT IJ; HYDR-4039 PO; INSU100V SQ; INSU100V9 SQ; LISI2.5T48 PO; LORA-259 PO; METO25TA6 PO; MOM PO; NITSL SL; ONDA4TAB5 PO; PANT40TA4 PO; POTA20TA83 PO; TOP25 PO
[2019-07-17 12:02] VITALS: BP_SYST 130
--- NOTE | 2019-07-17 12:02 | NUR ---
BROUGHT IN BY [facility] AND PLACED IN BED #8, TRIAGED. REPORT GIVEN TO ADRIANE
--- NOTE | 2019-07-17 12:16 | NUR ---
PT STATES HE HAS BEEN HAVING PAIN TO LEFT LOWER QUADRANT RADIATING UP TO LEFT UPPER QUADRANT, PRESSURE LIKE PAIN. PT STATES THAT WHEN HE TAKES PERCOCET 10MG IT HELPS FOR A FEW HOURS.
--- NOTE | 2019-07-17 12:40 | NUR ---
DR WILSON AT BEDSIDE FOR EVALUATION
[2019-07-17] MEDS ORDERED: MORPHINE 4 MG/ML INJ. SYRINGE IVP ONE (13:00)
[2019-07-17] MEDS ORDERED: DIPHENHYDRAMINE INJ 50 MG/ML VIAL IVP ONE (13:00)
[2019-07-17] MEDS ORDERED: PIPERACILLIN/TAZO 3.38 GM in NS 50 ML IV ONE (13:00)
--- NOTE | 2019-07-17 13:10 | NUR ---
# 22 gauge angiocath placed to RAC. Use of asceptic technique. Opsite placed over site. Blood return noted. Blood for lab drawn from site. Flushed with 10 cc of normal saline. No evidence of infiltration noted. Patient tolerated well.
--- NOTE | 2019-07-17 13:15 | NUR ---
Blood cx drawn prior to giving Zosyn
--- NOTE | 2019-07-17 13:20 | NUR ---
medicated the pt w/ Morphine 4mg, Benadryl 50mg, and Zosyn.
[2019-07-17 13:22] LABS: HEMATOCRIT 29.2 % (36-54); HEMOGLOBIN 8.7 g/dL (14.0-18.0); MEAN CORPUSCULAR HEMOGLOBIN 19 pg (27-31); MEAN CORPUSCULAR HGB CONC 30 % (32-36); MEAN CORPUSCULAR VOLUME 64 fL (79.0-98.0); PLATELET COUNT (AUTO) 355 K/uL (130-430); RED BLOOD CELL COUNT(AUTO) 4.54 MIL/uL (4.2-6.2); RED CELL DISTRIBUTION WIDTH 19.5 % (9.0-15.0)
[2019-07-17] MEDS ORDERED: PIPERACILLIN/TAZOBACTAM 3.375 GM/VIAL (ZOSYN) IV ONE (13:32)
[2019-07-17 13:39] LABS: CALCIUM 7.8 mg/dL (8.4-11.0); CREATININE 0.84 mg/dL (0.55-1.30); POTASSIUM 4.2 mmol/L (3.5-5.1)
[2019-07-17 13:40] LABS: PROTHROMBIN TIME 10.3 SECS (9.5-12.5)
--- NOTE | 2019-07-17 13:40 | NUR ---
Patient transported to radiology via gurney, accompanied by endoscopy specialty technician.
[2019-07-17 13:52] LABS: ALBUMIN 3.1 g/dL (3.4-4.8); TOTAL BILIRUBIN 0.2 mg/dL (0.0-1.0)
[2019-07-17 13:58] LABS: BASOPHILS % (MANUAL) 0 % (0-2); EOSINOPHILS % (MANUAL) 4 % (0-7); LYMPHOCYTES % (MANUAL) 27 % (20-46); MONOCYTES % (MANUAL) 10 % (0-11)
--- NOTE | 2019-07-17 14:17 | NUR ---
pt is has not been able to provide a urine sample. Pt is refusing to be straight cathed.
[2019-07-17 14:57] LABS: BILIRUBIN,URINE NEGATIVE (NEGATIVE); BLOOD, URINE NEGATIVE (NEGATIVE); CLARITY/URINE CLEAR (CLEAR); COLOR,URINE YELLOW (YELLOW); GLUCOSE,URINE 3+ (NEGATIVE); KETONES,URINE NEGATIVE (NEGATIVE); LEUKOCYTE ESTERASE ,URINE NEGATIVE (NEGATIVE); NITRITE, URINE NEGATIVE (NEGATIVE); PH,URINE 5.5 (5.0-8.0); PROTEIN URINE NEGATIVE (NEGATIVE); UROBILINOGEN,URINE 0.2 (0.2-1.0)
[2019-07-17 15:27] LABS: BACTERIA,URINE RARE /HPF (None Seen); RBC,URINE NONE SEEN /HPF (0-3); WBC,URINE 0-3 /HPF (0-3)
[2019-07-17 16:20] VITALS: BP_SYST 118
--- NOTE | 2019-07-17 16:32 | NUR ---
[facility]. Report given to Ladan ANG telephone operators supervisor
--- NOTE | 2019-07-17 16:58 | NUR ---
Called Care regarding transport [phone] that was set up. Spoke with transfer communications representative and he stated that the transport was set up on the wrong date. He states he scheduled a new inspection supervisor time for today between [phone].
--- NOTE | 2019-07-17 17:50 | NUR ---
Patient given written and verbal discharge instructions and verbalizes understanding. ER MD discussed with patient the results and treatment provided. Patient in stable condition. ID arm band removed. IV catheter removed intact and dressing applied, no active bleeding. Patient educated on pain management and to follow up with PMD. Pain Scale 0/10. Opportunity for questions provided and answered. Medication side effect fact sheet provided. Pt will be to [facility]. Report given to Ladan rn business practices supervisor. [facility] ambulance here to pickling machine operator the pt.
== END 2019-07-17 17:50 | disposition home or self-care (01) ==
LOC: SED 12:01
DX: R10.32 Left lower quadrant pain (principal); I11.0 Hypertensive heart disease with heart failure; I50.9 Heart failure, unspecified; E11.9 Type 2 diabetes mellitus without complications; Z86.79 Personal history of other diseases of the circulatory system; Z79.4 Long term (current) use of insulin; Z79.899 Other long term (current) drug therapy
CPT/HCPCS: 36415; 71045; 74176; 80053; 81000; 83605; 83690; 85007; 85027; 85610; 87040; 93005; 96365; 96375; 99285; J1200; J2270; J2543

== ENCOUNTER 2022-12-27 16:20 | Inpatient (IN) | payer OTHER, MEDICAID ==
[~2022-12-27] VITALS: Ht 185.4 cm; Wt 106.6 kg
[2022-12-27 16:20] VITALS: BP_SYST 130; PULSE 66; RESP 20; TEMP 97; O2SAT 94
[~2022-12-27 16:20] MED LIST changes: -ACET-2165 PO; +ACET325T PO; -INSU100V SQ; -PANT40TA4 PO; +PANT40TA45 PO; +POTA-197 PO; -POTA20TA83 PO
[2022-12-27] MEDS ORDERED: MULT-1089 PO (17:03)
[2022-12-27] MEDS ORDERED: LOPE2CAP PO (17:03)
[2022-12-27] MEDS ORDERED: CLON0.2T PO (17:03)
[2022-12-27] MEDS ORDERED: BISA10SU77 RC (17:03)
[2022-12-27] MEDS ORDERED: PERC10 PO (17:03)
[2022-12-27] MEDS ORDERED: SSNOVOLOG SUBCUT (17:03)
[2022-12-27] MEDS ORDERED: FURO-150 PO (17:03)
[2022-12-27] MEDS ORDERED: BETH5TAB10 PO (17:03)
[2022-12-27] MEDS ORDERED: FERR236T3 PO (17:03)
[2022-12-27] MEDS ORDERED: CAT1PAT TD (17:03)
[2022-12-27] MEDS ORDERED: ASCO500T20 PO (17:03)
[2022-12-27] MEDS ORDERED: LYR50 PO (17:03)
[2022-12-27] MEDS ORDERED: METF-379 PO (17:03)
[2022-12-27] MEDS ORDERED: ERGO800011 PO (17:03)
[2022-12-27] MEDS ORDERED: CARV25TA55 PO (17:03)
[2022-12-27] MEDS ORDERED: NOR10 PO (17:03)
[2022-12-27] MEDS ORDERED: CHOL4PAC20 PO (17:03)
[2022-12-27] MEDS ORDERED: PROXL60 PO (17:03)
[2022-12-27] MEDS ORDERED: CYM30 PO (17:03)
[2022-12-27] MEDS ORDERED: SOM350 PO (17:03)
[2022-12-27] MEDS ORDERED: ASA81 PO (17:03)
[2022-12-27 17:32] LABS: BASOPHILS # (AUTO) 0.1 K/uL (0.0-0.2); BASOPHILS % (AUTO) 0.8 % (0.0-2.0); EOSINOPHILS # (AUTO) 0.1 K/uL (0.0-0.4); HEMATOCRIT 40.6 % (36-54); HEMOGLOBIN 13.5 g/dL (14.0-18.0); LYMPHOCYTES % (AUTO) 18.4 % (20.5-51.5); MEAN CORPUSCULAR HEMOGLOBIN 30 pg (27-31); MEAN CORPUSCULAR HGB CONC 33 % (32-36); MEAN CORPUSCULAR VOLUME 89 fL (79.0-98.0); MONOCYTES # (AUTO) 0.7 K/uL (0.0-1.0); MONOCYTES % (AUTO) 6.7 % (1.7-9.3); NEUTROPHILS # (AUTO) 7.8 K/uL (1.8-7.7); NEUTROPHILS % (AUTO) 73.1 % (40.0-70.0); PLATELET COUNT (AUTO) 503 K/uL (130-430); RED BLOOD CELL COUNT(AUTO) 4.56 MIL/uL (4.2-6.2); RED CELL DISTRIBUTION WIDTH 13.8 % (9.0-15.0); WHITE BLOOD COUNT (AUTO) 10.6 K/uL (4.8-10.8)
[2022-12-27 17:41] LABS: INR 1.1 (0.80-1.20); PROTHROMBIN TIME 11.2 SECS (9.5-12.5)
[2022-12-27 17:45] LABS: ALANINE AMINOTRANSFERASE 23 U/L (12-78); ALBUMIN 2.7 g/dL (3.4-4.8); ANION GAP 11 (5-15); ASPARTATE AMINOTRANSFERASE 21 U/L (10-37); CALCIUM 8.7 mg/dL (8.4-11.0); CARBON DIOXIDE 22 mmol/L (23-29); CHLORIDE 104 mmol/L (98-107); CREATININE 0.66 mg/dL (0.55-1.30); GFR AFRICAN AMERICAN 159 mL/min (>90); GFR NON AFRICAN-AMERICAN 132 mL/min (>90); GLUCOSE 109 mg/dL (74-106); POTASSIUM 3.1 mmol/L (3.5-5.1); SODIUM SERUM 137 mmol/L (136-145); TOTAL BILIRUBIN 0.2 mg/dL (0.0-1.0); TOTAL PROTEIN, SERUM 7.9 g/dL (6.4-8.3); UREA NITROGEN, BLOOD 21 mg/dL (8-21)
[2022-12-27 17:53] LABS: CREATINE KINASE, TOTAL 17 U/L (39-308); FREE T4 (FREE THYROXINE) 1.2 ng/dl (0.8-1.5); THYROID STIMULATING HORMONE 1.76 uIu/mL (0.36-3.74)
[2022-12-27 18:26] LABS: ACETONE, SERUM NEGATIVE (NEGATIVE)
[2022-12-27] MEDS ORDERED: D5/0.45 NS 1,000 ML IV ONE (18:45)
[2022-12-27 21:00] VITALS: BP_SYST 138; PULSE 72; RESP 16; TEMP 98.3; O2SAT 96
[2022-12-27 22:00] VITALS: BP_SYST 138; PULSE 72; RESP 16; TEMP 98.3; O2SAT 96
[2022-12-28] VITALS: BP_SYST 140; PULSE 74; RESP 16; TEMP 98.1; O2SAT 96
[2022-12-28] MEDS ORDERED: BISACODYL 10 MG/SUPPOSITORY RC SCH (04:00)
[2022-12-28] MEDS ORDERED: BISACODYL 5 MG TABLET.DR (DULCOLAX) PO PRN (04:00)
[2022-12-28] MEDS ORDERED: ACETAMINOPHEN 325 MG TABLET PO PRN (04:00)
[2022-12-28] MEDS ORDERED: MILK OF MAGNESIA 30 ML UDC PO PRN (04:00)
[2022-12-28] MEDS ORDERED: LOPERAMIDE HCL 2 MG CAPSULE PO PRN (04:00)
[2022-12-28] MEDS ORDERED: cloNIDine HCL 0.2 MG TABLET PO SCH (04:00)
[2022-12-28] MEDS ORDERED: DEXTROSE 50% JECT 50 ML DISP.SYRIN IVP PRN (06:15)
[2022-12-28] MEDS ORDERED: GLUCOSE (DEXTROSE) ORAL GEL -Adults PO PRN (06:15)
[2022-12-28] MEDS ORDERED: D5W 1,000 ML IV PRN (06:15)
[2022-12-28] MEDS: OXYCODONE/ACETAMINOPHEN *10*mg/325 mg TABLET PO PRN ×2 (06:28→15:12)
[2022-12-28] MEDS ORDERED: INSULIN ASPART 100 UNITS/ML, 10 ML VIAL (NovoLOG) SUBCUT SCH (07:00)
[2022-12-28 08:23] VITALS: BP_SYST 174; PULSE 78; RESP 16; TEMP 98.5; O2SAT 96
[2022-12-28 08:30] VITALS: BP_SYST 144; PULSE 77; RESP 16; TEMP 98.2; O2SAT 93; O2SAT 97
[2022-12-28] MEDS: CARVEDILOL 25 MG TABLET (COREG) PO SCH ×2 (08:39→22:12)
[2022-12-28] MEDS: FUROSEMIDE 20 MG TABLET PO SCH (08:40)
[2022-12-28] MEDS: FERROUS GLUCONATE 324 MG TABLET PO SCH (08:40)
[2022-12-28] MEDS: CHOLESTYRAMINE/SUCROSE 4 GM/PACKET PO SCH ×4 (08:40→22:13)
[2022-12-28] MEDS: DOCUSATE SODIUM 100 MG/10 ML UDC PO SCH ×3 (08:40→22:13)
[2022-12-28] MEDS: PREGABALIN 25 MG CAPSULE (LYRICA) PO SCH ×2 (08:40→22:13)
[2022-12-28] MEDS: carisoprodoL 350 MG TABLET PO SCH ×2 (08:40→22:13)
[2022-12-28] MEDS: DULoxetine HCL 30 MG CAPSULE.DR (CYMBALTA) PO SCH ×2 (08:40→22:12)
[2022-12-28] MEDS: MULTIVITAMINS TAB 1 TABLET PO SCH (08:41)
[2022-12-28] MEDS: ASCORBIC ACID 500 MG TABLET PO SCH (08:41)
[2022-12-28] MEDS: lisinopriL 5 MG TABLET PO SCH (08:41)
[2022-12-28] MEDS: ASPIRIN 81 MG TAB.CHEW PO SCH (08:41)
[2022-12-28] MEDS ORDERED: GABAPENTIN 100 MG CAPSULE PO SCH (09:00)
[2022-12-28] MEDS ORDERED: ERGOCALCIFEROL 8000 UNITS/ML ORAL SOLUTION, 60 ML BOTTLE PO SCH ×2 (09:00)
[2022-12-28] MEDS ORDERED: NIFEdipine 30 MG TAB.ER.24 PO SCH (09:00)
[2022-12-28] MEDS ORDERED: cloNIDine HCL 0.2 MG TABLET PO PRN (09:02)
[2022-12-28] MEDS: INSULIN GLARGINE 100 UNITS/ML, 10 ML VIAL SQ SCH ×2 (09:27→22:33)
[2022-12-28 09:31] LABS: BASOPHILS # (AUTO) 0.1 K/uL (0.0-0.2); BASOPHILS % (AUTO) 0.6 % (0.0-2.0); EOSINOPHILS # (AUTO) 0.1 K/uL (0.0-0.4); EOSINOPHILS % (AUTO) 0.9 % (0.0-4.0); HEMATOCRIT 39.7 % (36-54); HEMOGLOBIN 13.4 g/dL (14.0-18.0); LYMPHOCYTES # (AUTO) 1.4 K/uL (1.0-5.5); LYMPHOCYTES % (AUTO) 14.3 % (20.5-51.5); MEAN CORPUSCULAR HEMOGLOBIN 30 pg (27-31); MEAN CORPUSCULAR HGB CONC 34 % (32-36); MEAN CORPUSCULAR VOLUME 88 fL (79.0-98.0); MONOCYTES # (AUTO) 0.8 K/uL (0.0-1.0); MONOCYTES % (AUTO) 7.6 % (1.7-9.3); NEUTROPHILS # (AUTO) 7.8 K/uL (1.8-7.7); NEUTROPHILS % (AUTO) 76.6 % (40.0-70.0); PLATELET COUNT (AUTO) 539 K/uL (130-430); RED BLOOD CELL COUNT(AUTO) 4.51 MIL/uL (4.2-6.2); RED CELL DISTRIBUTION WIDTH 13.9 % (9.0-15.0); WHITE BLOOD COUNT (AUTO) 10.1 K/uL (4.8-10.8)
[2022-12-28] MEDS: BETHANECHOL CHLORIDE 25 MG TABLET (URECHOLINE) PO SCH ×3 (09:36→22:12)
[2022-12-28 09:43] LABS: CALCIUM 8.5 mg/dL (8.4-11.0); CREATININE 0.65 mg/dL (0.55-1.30); POTASSIUM 3.1 mmol/L (3.5-5.1)
[2022-12-28 09:47] LABS: ALBUMIN 2.6 g/dL (3.4-4.8); TOTAL BILIRUBIN 0.3 mg/dL (0.0-1.0)
[2022-12-28 12:01] VITALS: BP_SYST 141; PULSE 97; RESP 14; TEMP 97.2; O2SAT 97
[2022-12-28] MEDS ORDERED: POTASSIUM CHLORIDE 20 MEQ TAB.PRT.SR PO ONE (13:30)
[2022-12-28 14:16] LABS: CLARITY/URINE CLEAR (CLEAR); COLOR,URINE YELLOW (YELLOW)
[2022-12-28 14:17] LABS: BILIRUBIN,URINE NEGATIVE (NEGATIVE); BLOOD, URINE NEGATIVE (NEGATIVE); GLUCOSE,URINE NEGATIVE (NEGATIVE); KETONES,URINE NEGATIVE (NEGATIVE); LEUKOCYTE ESTERASE ,URINE NEGATIVE (NEGATIVE); NITRITE, URINE NEGATIVE (NEGATIVE); PROTEIN URINE 2+ (NEGATIVE); UROBILINOGEN,URINE 0.2 (0.2-1.0)
[2022-12-28 14:21] LABS: BACTERIA,URINE None Seen /HPF (None Seen); CALCIUM OXALATE CRYSTALS,UR None Seen /HPF (None Seen); CALCIUM PHOSPHATE CRYSTALS,UR None Seen /HPF (None Seen); COARSE GRANULAR CASTS,URINE None Seen /LPF (None Seen); FINE GRANULAR CASTS,URINE None Seen /LPF (None Seen); HYALINE CASTS, URINE None Seen /LPF (None Seen); MUCUS,URINE None Seen /LPF (None Seen); OTHER CASTS, URINE None Seen /LPF (None Seen); OTHER CRYSTALS,URINE None Seen /HPF (None Seen); RBC,URINE NONE SEEN /HPF (0-3); TRICHOMONAS,URINE None Seen /HPF (None Seen); TRIPLE PHOSPHATE CRYSTAL,UR None Seen /HPF (None Seen); URIC ACID CRYSTALS,URINE None Seen /HPF (None Seen); URINE AMORPHOUS PHOSPHATES None Seen /HPF (None Seen); URINE AMORPHOUS URATE None Seen /HPF (None Seen); WAXY CASTS,URINE None Seen /LPF (None Seen); WBC,URINE NONE SEEN /HPF (0-3); YEAST,URINE None Seen /HPF (None Seen)
[2022-12-28 16:00] VITALS: BP_SYST 144; PULSE 82; RESP 18; TEMP 98; TEMP 98.6; O2SAT 96
[2022-12-28] MEDS: INSULIN REGULAR, HUMAN 100 UNITS/ML, 3 ML VIAL (humuLIN R) SUBCUT PRN (17:06)
[2022-12-28] MEDS: metFORMIN HCL 500 MG TABLET PO SCH (18:00)
[2022-12-28 20:00] VITALS: BP_SYST 164; PULSE 93; RESP 16; TEMP 98.7; O2SAT 98
[2022-12-28] MEDS: amLODIPine BESYLATE 10 MG TABLET PO SCH (22:13)
[2022-12-28] MEDS ORDERED: GABAPENTIN 300 MG CAPSULE PO ONE (23:15)
[2022-12-29] VITALS (7 sets, daily range): BP systolic 146–160; PULSE 74–77; RESP 16–18; TEMP 97.4–98; O2SAT 96–98
[2022-12-29] MEDS ORDERED: cloNIDine HCL 0.1 MG/24 HR PATCH.TDWK TD SCH (09:00)
[2022-12-29] MEDS: DOCUSATE SODIUM 100 MG/10 ML UDC PO SCH ×2 (09:00→21:56)
[2022-12-29] MEDS: CHOLESTYRAMINE/SUCROSE 4 GM/PACKET PO SCH ×3 (09:47→21:59)
[2022-12-29] MEDS: BETHANECHOL CHLORIDE 25 MG TABLET (URECHOLINE) PO SCH ×3 (09:47→21:59)
[2022-12-29] MEDS: lisinopriL 5 MG TABLET PO SCH (09:47)
[2022-12-29] MEDS: ASPIRIN 81 MG TAB.CHEW PO SCH (09:47)
[2022-12-29] MEDS: GABAPENTIN 300 MG CAPSULE PO SCH ×2 (09:48→21:58)
[2022-12-29] MEDS: MULTIVITAMINS TAB 1 TABLET PO SCH (09:48)
[2022-12-29] MEDS: CARVEDILOL 25 MG TABLET (COREG) PO SCH ×2 (09:49→21:57)
[2022-12-29] MEDS: ASCORBIC ACID 500 MG TABLET PO SCH (09:49)
[2022-12-29] MEDS: FUROSEMIDE 20 MG TABLET PO SCH (09:49)
[2022-12-29] MEDS: DULoxetine HCL 30 MG CAPSULE.DR (CYMBALTA) PO SCH ×2 (09:49→21:57)
[2022-12-29] MEDS: PREGABALIN 25 MG CAPSULE (LYRICA) PO SCH ×2 (09:49→21:57)
[2022-12-29] MEDS: carisoprodoL 350 MG TABLET PO SCH ×2 (09:50→21:59)
[2022-12-29] MEDS: FERROUS GLUCONATE 324 MG TABLET PO SCH (09:56)
[2022-12-29] MEDS: INSULIN GLARGINE 100 UNITS/ML, 10 ML VIAL SQ SCH ×2 (10:11→22:09)
[2022-12-29] MEDS: OXYCODONE/ACETAMINOPHEN *10*mg/325 mg TABLET PO PRN (16:18)
[2022-12-29] MEDS: metFORMIN HCL 500 MG TABLET PO SCH (18:00)
[2022-12-29] MEDS: amLODIPine BESYLATE 10 MG TABLET PO SCH (21:58)
[2022-12-29] MEDS: INSULIN REGULAR, HUMAN 100 UNITS/ML, 3 ML VIAL (humuLIN R) SUBCUT PRN (22:08)
[2022-12-30 00:11] VITALS: BP_SYST 147; PULSE 77; RESP 15; TEMP 98; O2SAT 98
[2022-12-30] MEDS: OXYCODONE/ACETAMINOPHEN *10*mg/325 mg TABLET PO PRN (05:49)
[2022-12-30 08:00] VITALS: BP_SYST 158; PULSE 76; RESP 17; TEMP 98; O2SAT 97
[2022-12-30] MEDS: DOCUSATE SODIUM 100 MG/10 ML UDC PO SCH (10:00)
[2022-12-30] MEDS: CHOLESTYRAMINE/SUCROSE 4 GM/PACKET PO SCH ×2 (10:00→15:04)
[2022-12-30] MEDS: DULoxetine HCL 30 MG CAPSULE.DR (CYMBALTA) PO SCH (10:01)
[2022-12-30] MEDS: lisinopriL 5 MG TABLET PO SCH (10:01)
[2022-12-30] MEDS: ASCORBIC ACID 500 MG TABLET PO SCH (10:01)
[2022-12-30] MEDS: BETHANECHOL CHLORIDE 25 MG TABLET (URECHOLINE) PO SCH ×2 (10:01→15:04)
[2022-12-30] MEDS: CARVEDILOL 25 MG TABLET (COREG) PO SCH (10:02)
[2022-12-30] MEDS: MULTIVITAMINS TAB 1 TABLET PO SCH (10:02)
[2022-12-30] MEDS: PREGABALIN 25 MG CAPSULE (LYRICA) PO SCH (10:02)
[2022-12-30] MEDS: FUROSEMIDE 20 MG TABLET PO SCH (10:02)
[2022-12-30] MEDS: ASPIRIN 81 MG TAB.CHEW PO SCH (10:02)
[2022-12-30] MEDS: carisoprodoL 350 MG TABLET PO SCH (10:02)
[2022-12-30] MEDS: FERROUS GLUCONATE 324 MG TABLET PO SCH (10:06)
[2022-12-30] MEDS: GABAPENTIN 300 MG CAPSULE PO SCH (10:06)
[2022-12-30] MEDS: INSULIN GLARGINE 100 UNITS/ML, 10 ML VIAL SQ SCH (10:13)
[2022-12-30 11:30] VITALS: BP_SYST 150; PULSE 79; RESP 20; TEMP 97.6; O2SAT 94
[2022-12-30 12:16] VITALS: O2SAT 97
[2022-12-30 13:49] VITALS: BP_SYST 141; PULSE 79; RESP 18; TEMP 98.1; O2SAT 97
== END 2022-12-30 15:54 | DRG 641 ==
LOC: SED 16:20 → SMU 18:42
PROVIDERS: ADMIT Internal Medicine Infectious Disease; ATTEND Internal Medicine Infectious Disease
DX: R63.0 Anorexia (principal); I69.354 Hemiplegia and hemiparesis following cerebral infarction affecting left non-dominant side; E44.1 Mild protein-calorie malnutrition; G89.4 Chronic pain syndrome; E11.9 Type 2 diabetes mellitus without complications; I11.0 Hypertensive heart disease with heart failure; F29 Unspecified psychosis not due to a substance or known physiological condition; E66.9 Obesity, unspecified; I50.9 Heart failure, unspecified; Z79.82 Long term (current) use of aspirin; Z79.899 Other long term (current) drug therapy; Z68.31 Body mass index [BMI] 31.0-31.9, adult
CPT/HCPCS: 36415; 71045; 76376; 76700-TC; 80053; 81000; 82009; 82550; 82962; 82977; 83605; 83690; 84439; 84443; 84484; 85025; 85610-TC; 85730-TC; 87045-TC; 87046; 87081; 87177; 87230-TC; 89055; 93005; 99285; J1815; Q9967